=== PATIENT | female | born 1955 | race Caucasian/White ===

== ENCOUNTER 2017-05-23 13:39 | Emergency (ER) | payer OTHER ==
[~2017-05-23] VITALS: Ht 175.3 cm; Wt 104.3 kg
[2017-05-23 14:39] LABS: HEMATOCRIT 49.7 % (36.0-46.0); HEMOGLOBIN 16.3 G/DL (11.9-15.5); MCHC 32.8 G/DL (30.0-36.0); MCV 91.5 FL (83-99); PLATELET COUNT 234 K/uL (156-360); RBC DIS.WIDTH-CV 12.3 % (11.8-14.6); RBC DIS.WIDTH-SD 41.1 % (39-53); RED BLOOD COUNT 5.43 M/uL (3.80-5.20); WHITE BLOOD COUNT 9.3 K/uL (4.1-10.2)
[2017-05-23 14:47] LABS: ALBUMIN 4.5 g/dL (3.2-4.8); CHLORIDE 100 mEq/L (99-109); POTASSIUM 4.1 mEq/L (3.7-5.4); SODIUM 138 mEq/L (136-147)
[2017-05-23 14:50] LABS: GLUCOSE 103 mg/dL (70-99)
[2017-05-23 14:52] LABS: TOTAL BILIRUBIN 0.7 mg/dL (0.0-1.0)
[2017-05-23 14:53] LABS: ALKALINE PHOSPHATASE 82 IU/L (3-129); CREATININE 0.8 mg/dL (0.6-1.3); GFR ESTIMATE (CALCULATED) > 59 mL/min/
[2017-05-23 14:55] LABS: AST (GOT) 23 IU/L (2-34); UREA NITROGEN (BUN) 13 mg/dL (9-23)
[2017-05-23 14:56] LABS: ALT (GPT) 24 IU/L (3-49)
[2017-05-23 14:57] LABS: LIPASE 60 U/L (1.0-51.0)
[2017-05-23 15:04] LABS: TROP-I INTERPRETATION NEGATIVE; TROPONIN-I < 0.01 ng/mL (0.0-0.30)
[2017-05-23] MEDS ORDERED: OMEPRAZOLE40 M1 PO (17:22)
[2017-05-23 18:26] LABS: TROP-I INTERPRETATION NEGATIVE; TROPONIN-I < 0.01 ng/mL (0.0-0.30)
[2017-05-23] MEDS ORDERED: PROTONIX40 MG PO (18:34)
[2017-05-23 18:48] VITALS: BP 134/81
== END 2017-05-23 18:50 | disposition home or self-care (01) ==
LOC: EME 13:39
PROVIDERS: Physician Assistant
DX: K21.9 Gastro-esophageal reflux disease without esophagitis (principal); Z90.710 Acquired absence of both cervix and uterus
CPT/HCPCS: 71046; 80053; 83690; 84484; 85027; 93005; 99281; 99283